=== PATIENT | female | born 1935 | race Hispanic/Latino ===

== ENCOUNTER 2018-11-18 20:21 | Inpatient (IN) | payer MEDICARE ==
[~2018-11-18] VITALS: Ht 152.4 cm; Wt 73.0 kg
[~2018-11-18 20:21] MED LIST: ADVAIR 250-501 EACH INH; ALBUTEROL SULFAT2 MG PO; ALPRAZOLAM0.5 MG PO; AMLODIPINE BESYL5 MG PO; BENZONATATE100 MG PO; DEXILANT30 MG PO; DITROPAN XL5 MG PO; DONEPEZIL HCL5 MG PO; FLONASE16 GM; FUROSEMIDE20 MG PO; GABAPENTIN100 MG PO; GABAPENTIN300 MG PO; K DUR10 MEQ PO; LEVAQUIN500 MG PO; METOCLOPRAMIDE10 MG PO; MONTELUKAST SOD10 MG PO; NAMENDA10 MG PO; NEXIUM40 MG PO; NYSTATIN15 G2 TP; PREDNISOLONE ACE5 ML; PREDNISONE10 MG PO; PREDNISONE5 MG PO; PROAIR HFA INH8.5 GM; PROAIR HFA INH8.5 GM INH; SPIRIVA18 MCG INH; THEOPHYLLINE400 MG PO; TRAMADOL-ACETAMI1 EA PO; TRAVATAN Z5 ML OP; TRAZODONE HCL50 MG PO
--- OUTSIDE RECORDS SUMMARY | 2018-11-18 20:25 | XMS REPORT ---
Author Author [facility] Address Unknown Phone Unavailable Care Team Providers Care Studio Technician Name Role Phone Rubina LAWLER Unavailable Unavailable Problems This patient has no known problems. Allergies, Adverse Reactions, Alerts This patient has no known allergies or adverse reactions. Medications This patient has no known medications. Results Test Description Test Time Test Comments Text Results Atomic Results Result Comments CHEST SINGLE (PORTABLE) [place] [address] Patient Name: LYDIA LEROY MR #: [id number] : 1935 Age/Sex: 81/F Req #: [id number] Adm Physician: Ordered by: HAILEY LAWLER MD Report #: [id number] Location: ER Room/Bed: Procedure: [id number] DX/CHEST SINGLE (PORTABLE) Exam Date: 08/22/17 Exam Time: 0115 REPORT STATUS: Signed CHEST SINGLE (PORTABLE), 08/22/2017 12:41 AM Technique: CHEST SINGLE (PORTABLE) Comparison: 05/16/2016 Clinical history: Shortness of breath Findings: Stable mild cardiomegaly. Stable appearance of the lungs and pleural spaces with persistent left basilar volume loss and scarring, minimal bibasilar atelectasis/scarring. No significant effusion or pneumothorax. Impression: Stable chest without acute abnormality Signed by: Dr Avinash Nicolas MD on 08/22/2017 1:56 AM Dictated By: AVINASH NICOLAS MD 5 Transcribed By: YOSVANY on 08/22/17155 COPY TO: HAILEY LAWLER MD
--- NOTE | 2018-11-18 21:57 | Diagnostic Imaging Report ---
CHEST SINGLE (PORTABLE), 11/18/2018 8:33 PM Technique: CHEST SINGLE (PORTABLE) Comparison: 9.24.17. Clinical history: Shortness of breath Findings: Stable mild cardiomegaly. Mild right basilar opacity, new. Stable left basilar scarring. No significant effusion or pneumothorax. Impression: Mild right basilar opacity could reflect aspiration or pneumonia. Recommend follow up upright PA and lateral. Signed by: Dr Gladis Nicolas MD on 11/18/2018 9:53 PM
[2018-11-18] MEDS ORDERED: AZITHROMYCIN 500MG/NS 250 ML 250 ML IV STA (22:12)
[2018-11-18] MEDS ORDERED: CEFTRIAXONE SOD 1 GM VIAL IV SCH (22:15)
[2018-11-18] MEDS ORDERED: ALBUTEROL/IPRATROPIUM 3 ML NEB NEB PRN (22:15)
[2018-11-18 22:19] LABS: BASOPHILS % 0.1 % (0.0-1.0); HEMOGLOBIN 10.7 g/dL (12.0-16.0); LYMPHOCYTES # (AUTO) 1.2 (1.0-3.2); LYMPHOCYTES % 7.6 % (18.0-39.1); MEAN CORPUSCULAR HEMOGLOBIN 27.5 pg (28-32); MEAN CORPUSCULAR HGB CONC 31.5 g/dL (31-35); MEAN CORPUSCULAR VOLUME 87.4 fL (81-99); MONOCYTES # (AUTO) 1.3 (0.2-0.8); NEUTROPHILS # (AUTO) 13.5 (2.1-6.9); NEUTROPHILS % 83.5 % (38.7-80.0); PLATELET COUNT 311 x10e3/uL (140-360); RED BLOOD COUNT 3.89 x10e6/uL (3.6-5.1); RED CELL DISTRIBUTION WIDTH 14.6 % (11.7-14.4)
[2018-11-18 22:31] LABS: ALANINE AMINOTRANSFERASE 20 IU/L (0-55); ALBUMIN 3.7 g/dL (3.5-5.0); ALBUMIN/GLOBULIN RATIO 1.1 (0.8-2.0); ALKALINE PHOSPHATASE 134 IU/L (40-150); ANION GAP 15.6 mmol/L (8-16); BLOOD UREA NITROGEN 5 mg/dL (7-26); BUN/CREATININE RATIO 7 (6-25); CALCIUM 9.4 mg/dL (8.4-10.2); CARBON DIOXIDE 23 mmol/L (22-29); CHLORIDE 97 mmol/L (98-107); EST GLOMERULAR FILTRATION RATE > 60 ML/MIN (60-); GLUCOSE 121 mg/dL (74-118); POTASSIUM 3.6 mmol/L (3.5-5.1); SODIUM 132 mmol/L (136-145)
[2018-11-18 22:40] LABS: CREATINE KINASE 84 IU/L (29-168)
[2018-11-18] MEDS ORDERED: CEFTRIAXONE SOD 1 GM/NS 50 ML 50 ML IV ONE (23:44)
[2018-11-18] MEDS: IPRATROPIUM BROMIDE 0.02% 2.5 ML NEB NEB SCH (23:45)
[2018-11-18] MEDS: ALBUTEROL SULF 0.083% NEB SOLN 3 ML NEB NEB SCH (23:45)
[2018-11-18 23:51] LABS: CREATINE KINASE 51 IU/L (29-168)
[2018-11-19] VITALS (9 sets, daily range): BP systolic 152–175; BP diastolic 62–91
--- NOTE | 2018-11-19 02:37 | NUR ---
Patient received via stretcher from ER. Admission history and Initial physical assessment completed. AAO x 3. Patient had no complaints of pain. No signs of respiratory distress. 2L NC in place. Patient oriented to room, call light and plan of care. Bed locked and in lowest position. Bed rails up x 2. Bed alarm activated. Patient did not have a list of her medications and stated her daughter will bring a list of her medication in the morning. Patient instructed to call for assistance when needed. Call light within reach.
--- NOTE | 2018-11-19 02:52 | NUR ---
Patient requested Oxybutynin Chloride (5mg) for her overactive bladder , medication to ease her pain when coughing and sleep medication. A message was left on Dr. Darnell's voicemail ([phone]). Awaiting call back.
[2018-11-19] MEDS: ALBUTEROL SULF 0.083% NEB SOLN 3 ML NEB NEB SCH ×3 (03:00→10:45)
[2018-11-19] MEDS: IPRATROPIUM BROMIDE 0.02% 2.5 ML NEB NEB SCH ×2 (06:25→07:47)
[2018-11-19 08:44] LABS: CREATINE KINASE 148 IU/L (29-168)
--- NOTE | 2018-11-19 11:58 | NUR ---
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 Diet Hx.: No known food allergies. Pt is eating well and denies any difficulty chewing with dentures, swallowing, no N, V, D. Pt is able to feed herself and is walking. Current Diet: ADA/cardiac Malnutrition Evaluation (11/19/2018) The patient does not meet criteria for a specified degree of malnutrition at this time. Will re-evaluate at follow-up as appropriate. Diet Education Needs Assessment: Diet education not indicated. Diet Adequacy: Meeting calorie needs, Meeting protein needs, Meeting fluid needs Tolerance: Tolerating PO Nutrition Care Level:Ortiz Maldonado RD, LD, CNSC
[2018-11-19] MEDS ORDERED: ONDANSETRON HCL INJ 2 MG/ML VIAL IV PRN (12:00)
[2018-11-19] MEDS ORDERED: ALBUTEROL/IPRATROPIUM 3 ML NEB NEB PRN (12:00)
[2018-11-19] MEDS ORDERED: ACETAMINOPHEN 325 MG TAB PO PRN (12:00)
--- NOTE | 2018-11-19 13:37 | History and Physical ---
CHIEF COMPLAINT: Cough, failed outpatient antibiotic treatment, aspiration pneumonia. HISTORY: This is an 83-year-old female who is on hospice for COPD and bronchiectasis, came in with fever and cough, difficulty breathing in light of oxygen usage at home. The patient started out with Levaquin already with hospice, but she did not get any better. She was having difficulty breathing. Chest x-ray showed right lower lobe pneumonia. The patient also has chronic aspiration as well. She is admitted for further treatment. She had a WBC of 16,000 with fever of 101. The patient is otherwise stable now. PAST MEDICAL HISTORY: Chronic asthma with recurrent exacerbation, bronchiectasis, COPD, hypertension, generalized weakness, very hard of hearing, progressive dementia, urinary urgency and incontinence. PAST SURGICAL HISTORY: Hysterectomy, cholecystectomy, abdominal hernia repair, knee surgery. SOCIAL HISTORY: Patient lives at home with her family. She does not smoke or use alcohol. She has very good family support. ALLERGIES: NO KNOWN ALLERGIES. HOME MEDICATIONS: List is extensive. Albuterol, Xanax, Norvasc, Tessalon Perles, Dexilant, Aricept, Flonase, gabapentin, Namenda, Reglan, Singulair, oxybutynin, potassium, prednisone chronically 10 mg daily, theophylline 400 mg q.24 hours, Spiriva, Ultracet, multiple eye drops. PHYSICAL EXAMINATION VITAL SIGNS: T-max is 101, blood pressure 124/53, pulse rate 88, respirations 18. GENERAL: Patient is in no acute distress. He is awake. HEENT: Normocephalic, atraumatic. Anicteric. NECK: Supple grossly. PULMONARY: Bilateral coarses and rhonchi with diminished breath sounds at the bases on the right more than the left. CARDIOVASCULAR: Tachycardia. ABDOMEN: Soft. EXTREMITIES: No cyanosis or edema. NEUROLOGIC: No gross focal deficit. LABORATORY: WBC 15.2, hemoglobin 10.7, hematocrit 34, platelets 311. Chemistries; sodium is 132, potassium 3.6, chloride 97, bicarb 23, BUN 5, creatinine 0.7, glucose 121. IMAGING: Chest x-ray showed that the patient has right basilar opacity, could be aspiration pneumonia. IMPRESSION 1. Aspiration pneumonia, most likely given the patient's history. The patient had dysphagia and dementia progressive, but also chronic obstructive pulmonary disease at baseline and asthma. 2. Pvzpf-li-mdygynl asthma exacerbation and yumdr-ok-ppmkkaf chronic obstructive pulmonary disease exacerbation. 3. Acute bronchiectasis exacerbation. 4. Progressive decline with dementia and hypertension. PLAN: Continue with Zosyn and IV antibiotic. Add on azithromycin. Stop Rocephin. Nebulizer treatment. Home medications resumed. CT of the chest without IV contrast. Oxygen support. IV steroids. Will monitor the patient closely. The patient will be admitted for the next few days for treatment. Job#: [id number] SUSIE
[2018-11-19] MEDS ORDERED: SODIUM CHLORIDE 0.9% 250ML 250 ML ONE (13:48)
[2018-11-19] MEDS: OXYBUTYNIN CHLORIDE XL 5 MG TAB PO SCH (14:00)
--- NOTE | 2018-11-19 14:01 | NUR ---
Patient off the floor for CT
[2018-11-19] MEDS: ALBUTEROL/IPRATROPIUM 3 ML NEB NEB SCH ×2 (14:10→19:03)
--- NOTE | 2018-11-19 14:33 | NUR ---
CASE MANAGEMENT INITIAL ASSESSMENT Assembler Engine to bedside to discuss plan of care with patient/family. CM/SW role and care transitions discussed. Anticipated discharge plan discussed along with duration of care. CM/SW discussed patients right to make decisions in care. CM/SW work hours given. Patient lives: IN OWN HOUSE WITH DAUGHTER SOPHIE [phone] Admit/Transfer: VIA ED FROM HOME POA/Emergency contact: SOPHIE Current/Previous Home Health: [facility] FOR 34 HOURS A WEEK PCP/Follow-up Care: YE Current/Previous DME: [facility] O2 AT NIGHT AND NEBULIZER TREATMENT AT HOME Other Services: NONE Employment Status: RETIRED Areas of Concerns: NONE Referral Needs: NONE Education Needs: NONE IMM/STANLEY given and signed (if applicable): UPON ADMISSION Goal for discharge: RETURN HOME INDEPENDENTLY CM/SW left business card at the bedside with contact information. Name and number was also written on the patients whiteboard. Patient verbalized understanding of discussion. CM will follow-up with ongoing discharge and transition of care needs.
[2018-11-19] MEDS: PIPER-TAZ 3.375 GM 50 ML IV SCH ×2 (14:58→21:30)
[2018-11-19] MEDS: AZITHROMYCIN 500MG/NS 250 ML 250 ML IV SCH (15:42)
[2018-11-19 15:57] LABS: CREATINE KINASE 173 IU/L (29-168)
[2018-11-19] MEDS: FLUTICASONE PROPIONATE NASAL SPRAY NS SCH (17:38)
[2018-11-19] MEDS: MEMANTINE 10 MG TAB PO SCH (17:38)
[2018-11-19] MEDS: GABAPENTIN 300 MG CAP PO SCH (17:38)
[2018-11-19] MEDS: THEOPHYLLINE 200 MG TABCR PO SCH (17:38)
[2018-11-19] MEDS: METOCLOPRAMIDE HCL 10 MG TAB PO SCH (17:38)
--- NOTE | 2018-11-19 19:28 | NUR ---
Patient received sitting up in bed. AAO x 3. No complaints of pain. Respirations even and non-labored. Fall precautions maintained. Patient instructed to call for assistance when needed. Call light within reach.
[2018-11-19] MEDS: MONTELUKAST SODIUM 10 MG TAB PO SCH (21:30)
[2018-11-19] MEDS: TRAZODONE HCL 50 MG TAB PO SCH (21:30)
[2018-11-19] MEDS: DONEPEZIL HCL 5 MG TAB PO SCH (21:30)
[2018-11-19] MEDS: TRAVOPROST(OPTH) 2.5 ML BTL OP SCH (21:30)
[2018-11-20] VITALS (7 sets, daily range): BP systolic 127–138; BP diastolic 48–64
[2018-11-20] MEDS: ALBUTEROL/IPRATROPIUM 3 ML NEB NEB SCH ×4 (00:39→19:27)
[2018-11-20] MEDS: ALPRAZOLAM 0.5 MG TAB PO PRN ×2 (00:50→09:12)
[2018-11-20] MEDS: TRAMADOL/APAP 37.5MG-325MG TAB PO PRN (00:50)
[2018-11-20] MEDS: PIPER-TAZ 3.375 GM 50 ML IV SCH ×4 (02:10→20:52)
[2018-11-20 05:18] LABS: BASOPHILS % 0.4 % (0.0-1.0); EOSINOPHILS # (AUTO) 0.1 (0.0-0.4); EOSINOPHILS % 0.7 % (0.0-6.0); HEMATOCRIT 29.6 % (34.2-44.1); HEMOGLOBIN 9.2 g/dL (12.0-16.0); LYMPHOCYTES # (AUTO) 1.2 (1.0-3.2); LYMPHOCYTES % 17.2 % (18.0-39.1); MEAN CORPUSCULAR HEMOGLOBIN 27.1 pg (28-32); MEAN CORPUSCULAR HGB CONC 31.1 g/dL (31-35); MEAN CORPUSCULAR VOLUME 87.1 fL (81-99); MONOCYTES # (AUTO) 0.9 (0.2-0.8); MONOCYTES % 13.4 % (4.4-11.3); NEUTROPHILS # (AUTO) 4.6 (2.1-6.9); NEUTROPHILS % 67.4 % (38.7-80.0); PLATELET COUNT 280 x10e3/uL (140-360); RED CELL DISTRIBUTION WIDTH 14.5 % (11.7-14.4)
[2018-11-20 05:47] LABS: ANION GAP 13.9 mmol/L (8-16); BLOOD UREA NITROGEN 7 mg/dL (7-26); BUN/CREATININE RATIO 11 (6-25); CALCIUM 8.8 mg/dL (8.4-10.2); CARBON DIOXIDE 25 mmol/L (22-29); CHLORIDE 100 mmol/L (98-107); CREATININE, SERUM 0.63 mg/dL (0.57-1.11); EST GLOMERULAR FILTRATION RATE > 60 ML/MIN (60-); GLUCOSE 98 mg/dL (74-118); SODIUM 136 mmol/L (136-145)
[2018-11-20 05:53] LABS: POTASSIUM 2.9 mmol/L (3.5-5.1)
--- NOTE | 2018-11-20 06:07 | NUR ---
medical laboratory technician called with critical lab value of Potassium of 2.9. Dr. Adriane Darnell notified by leaving a message on his voice-mail. Awaiting call back.
--- NOTE | 2018-11-20 07:16 | NUR ---
Shift report given to oncoming nurse. Patient in stable condition.
--- NOTE | 2018-11-20 07:59 | Diagnostic Imaging Report ---
EXAM: CT Chest WITHOUT contrast INDICATION: ^SOB ^20181119 ^1350 COMPARISON: Same day chest x-ray TECHNIQUE: Chest was scanned utilizing a multidetector helical scanner from the lung apex through the level of the adrenal glands without administration of IV contrast. Absence of intravenous contrast decreases sensitivity for detection of lymphadenopathy and vascular pathology. Coronal and sagittal reformations were obtained. Routine protocol was performed. IV CONTRAST: None COMPLICATIONS: None RADIATION DOSE: Total DLP: 503.14 mGy*cm Estimated effective dose: (DLP x 0.014 x size factor) mSv CTDIvol has been reviewed. It is below the limits set by the Radiation Protocol Committee (RPC). FINDINGS: Limited study due to motion. Patient could not hold breath. LINES/ TUBES: None. LUNGS AND AIRWAYS: Hyperinflated lungs. Anterior right upper lobe cluster of tiny nodules (series 3, image 55). There are additional scattered tiny nodules throughout the lungs. Right base consolidation. There are small additional areas of focal consolidation, such as in left lower lobe (series 3, image 62). Airways are normal. PLEURA: The pleural spaces are clear. HEART AND MEDIASTINUM: The thyroid gland is normal. No mediastinal lymphadenopathy. Scattered nonspecific mediastinal lymph nodes, measuring up to 0.9 cm in the right paratracheal region. Limited for evaluation of hilar regions without intravenous contrast. No axillary lymphadenopathy. The heart is enlarged. There is no pericardial effusion. Main pulmonary artery measures 3.2 cm, slightly enlarged. Moderate to severe calcification of aortic arch. UPPER ABDOMEN: Left diaphragmatic hernia with herniation of fat and engorged subdiaphragmatic vessels (series 2, image 100). There is also moderate size hiatal hernia. The esophagus is mildly patulous. BONES: Mild scoliosis of the thoracic spine with multilevel degenerative changes. Generalized demineralization. SOFT TISSUES: Unremarkable. IMPRESSION: 1. Limited study due to motion artifact. 2. Scattered tiny nodules as well as areas of consolidation, most notable in right base, concerning for infectious/inflammatory process. 3. Large left diaphragmatic hernia, containing fat and herniated engorged infra diaphragmatic vessels. 4. Moderate size hiatal hernia. Signed by: Dr. Duane Rayo MD on 11/20/2018 7:56 AM
[2018-11-20] MEDS ORDERED: POTASSIUM CHLORIDE 10MEQ EA PO SCH (09:00)
[2018-11-20] MEDS ORDERED: OXYBUTYNIN CHLORIDE XL 5 MG TAB PO SCH (09:00)
[2018-11-20] MEDS: FLUTICASONE PROPIONATE NASAL SPRAY NS SCH ×2 (09:11→17:17)
[2018-11-20] MEDS: OXYBUTYNIN CHLORIDE XL 5 MG TAB PO SCH (09:11)
[2018-11-20] MEDS: GABAPENTIN 300 MG CAP PO SCH ×2 (09:11→17:16)
[2018-11-20] MEDS: AMLODIPINE BESYLATE 5 MG TAB PO SCH (09:11)
[2018-11-20] MEDS: PANTOPRAZOLE SOD 40 MG TABEC PO SCH (09:11)
[2018-11-20] MEDS: MEMANTINE 10 MG TAB PO SCH ×2 (09:11→17:16)
[2018-11-20] MEDS: METOCLOPRAMIDE HCL 10 MG TAB PO SCH ×2 (09:11→17:16)
[2018-11-20] MEDS: POTASSIUM CHLORIDE 10MEQ EA PO SCH ×3 (09:11→15:45)
[2018-11-20] MEDS: THEOPHYLLINE 200 MG TABCR PO SCH ×2 (09:12→17:17)
[2018-11-20] MEDS: AZITHROMYCIN 500MG/NS 250 ML 250 ML IV SCH ×2 (12:30→13:00)
--- NOTE | 2018-11-20 19:25 | NUR ---
Patient received asleep in bed. Aroused by tactile stimuli. No signs of pain , discomfort or respiratory distress. Bed locked and in lowest position. Bed rails up x 2. Call light within reach.
[2018-11-20] MEDS: ALBUTEROL SULFATE 2 MG TAB PO SCH (19:27)
[2018-11-20] MEDS: MONTELUKAST SODIUM 10 MG TAB PO SCH (21:53)
[2018-11-20] MEDS: DONEPEZIL HCL 5 MG TAB PO SCH (21:53)
[2018-11-20] MEDS: TRAZODONE HCL 50 MG TAB PO SCH (21:53)
[2018-11-20] MEDS: TRAVOPROST(OPTH) 2.5 ML BTL OP SCH (21:53)
[2018-11-21] VITALS (9 sets, daily range): BP systolic 116–152; BP diastolic 50–69
[2018-11-21] MEDS: ALBUTEROL/IPRATROPIUM 3 ML NEB NEB SCH ×4 (01:05→19:35)
[2018-11-21] MEDS: PIPER-TAZ 3.375 GM 50 ML IV SCH ×4 (01:42→21:05)
[2018-11-21] MEDS: TRAMADOL/APAP 37.5MG-325MG TAB PO PRN (02:12)
[2018-11-21 05:29] LABS: ANION GAP 11.8 mmol/L (8-16); BLOOD UREA NITROGEN 8 mg/dL (7-26); BUN/CREATININE RATIO 12 (6-25); CALCIUM 8.8 mg/dL (8.4-10.2); CARBON DIOXIDE 24 mmol/L (22-29); CHLORIDE 104 mmol/L (98-107); CREATININE, SERUM 0.66 mg/dL (0.57-1.11); EST GLOMERULAR FILTRATION RATE > 60 ML/MIN (60-); GLUCOSE 96 mg/dL (74-118); POTASSIUM 3.8 mmol/L (3.5-5.1); SODIUM 136 mmol/L (136-145)
--- NOTE | 2018-11-21 07:18 | NUR ---
Patient resting comfortably. Shift report given to oncoming nurse.
--- NOTE | 2018-11-21 07:25 | NUR ---
PATIENT IN BED WITH HEAD OF BED ELEVATED RECEIVING NEB TREATMENT, NO RESPIRATORY DISTRESS OBSERVED. BED IN LOWER POSITION, CALL LIGHT AT REACH. INSTRUCTED TO CALL FOR ASSISTANCE NEEDED.
[2018-11-21] MEDS: PANTOPRAZOLE SOD 40 MG TABEC PO SCH (07:30)
[2018-11-21] MEDS: FLUTICASONE PROPIONATE NASAL SPRAY NS SCH ×2 (09:25→17:40)
[2018-11-21] MEDS: MEMANTINE 10 MG TAB PO SCH ×2 (09:26→17:40)
[2018-11-21] MEDS: POTASSIUM CHLORIDE 10MEQ EA PO SCH (09:26)
[2018-11-21] MEDS: OXYBUTYNIN CHLORIDE XL 5 MG TAB PO SCH (09:26)
[2018-11-21] MEDS: AMLODIPINE BESYLATE 5 MG TAB PO SCH (09:26)
[2018-11-21] MEDS: THEOPHYLLINE 200 MG TABCR PO SCH ×2 (09:26→17:40)
[2018-11-21] MEDS: GABAPENTIN 300 MG CAP PO SCH ×2 (09:26→17:40)
[2018-11-21] MEDS: METOCLOPRAMIDE HCL 10 MG TAB PO SCH ×2 (09:26→17:40)
--- NOTE | 2018-11-21 11:40 | NUR ---
PATIENT AMBULATING IN HALLWAY WITH PHYSICAL THERAPY, NO RESPIRATORY DISTRESS OBSERVED. WILL CONTINUE TO MONITOR.
[2018-11-21] MEDS: GUAIFENESIN/CODEINE 10 ML CUP PO SCH ×2 (12:56→18:37)
[2018-11-21] MEDS: AZITHROMYCIN 500MG/NS 250 ML 250 ML IV SCH (13:32)
--- NOTE | 2018-11-21 17:51 | NUR ---
PATIENT ASSISTED TO THE RESTROOM AND BACK TO CHAIR. FAMILY MEMBERS VISITING WITH PATIENT. CALL LIGHT AT REACH.
[2018-11-21] MEDS: ALBUTEROL SULFATE 2 MG TAB PO SCH (19:35)
[2018-11-21] MEDS: TRAZODONE HCL 50 MG TAB PO SCH (21:05)
[2018-11-21] MEDS: DONEPEZIL HCL 5 MG TAB PO SCH (21:05)
[2018-11-21] MEDS: MONTELUKAST SODIUM 10 MG TAB PO SCH (21:05)
[2018-11-21] MEDS: TRAVOPROST(OPTH) 2.5 ML BTL OP SCH (21:05)
[2018-11-22] MEDS: GUAIFENESIN/CODEINE 10 ML CUP PO SCH ×4 (00:32→18:00)
[2018-11-22 01:04] VITALS: BP 161/75
[2018-11-22] MEDS: ALBUTEROL/IPRATROPIUM 3 ML NEB NEB SCH ×4 (01:07→19:27)
[2018-11-22] MEDS: PIPER-TAZ 3.375 GM 50 ML IV SCH ×3 (01:11→18:00)
[2018-11-22 05:04] LABS: BASOPHILS % 0.8 % (0.0-1.0); EOSINOPHILS # (AUTO) 0.2 (0.0-0.4); EOSINOPHILS % 3.3 % (0.0-6.0); HEMATOCRIT 27.1 % (34.2-44.1); HEMOGLOBIN 8.3 g/dL (12.0-16.0); LYMPHOCYTES # (AUTO) 1.4 (1.0-3.2); LYMPHOCYTES % 27.5 % (18.0-39.1); MEAN CORPUSCULAR HEMOGLOBIN 26.9 pg (28-32); MEAN CORPUSCULAR HGB CONC 30.6 g/dL (31-35); MEAN CORPUSCULAR VOLUME 87.7 fL (81-99); MONOCYTES # (AUTO) 0.6 (0.2-0.8); MONOCYTES % 11.1 % (4.4-11.3); NEUTROPHILS % 56.3 % (38.7-80.0); PLATELET COUNT 268 x10e3/uL (140-360); RED BLOOD COUNT 3.09 x10e6/uL (3.6-5.1); RED CELL DISTRIBUTION WIDTH 14.4 % (11.7-14.4)
[2018-11-22 05:27] LABS: ANION GAP 12.5 mmol/L (8-16); BLOOD UREA NITROGEN 6 mg/dL (7-26); BUN/CREATININE RATIO 9 (6-25); CALCIUM 8.7 mg/dL (8.4-10.2); CARBON DIOXIDE 26 mmol/L (22-29); CHLORIDE 103 mmol/L (98-107); CREATININE, SERUM 0.66 mg/dL (0.57-1.11); EST GLOMERULAR FILTRATION RATE > 60 ML/MIN (60-); GLUCOSE 94 mg/dL (74-118); POTASSIUM 3.5 mmol/L (3.5-5.1); SODIUM 138 mmol/L (136-145)
[2018-11-22 06:38] VITALS: BP 149/67
[2018-11-22 07:55] VITALS: BP 160/73
--- NOTE | 2018-11-22 08:00 | NUR ---
ROUNDING DONE EARLIER. NO RESP DISTRESS NOTED.
[2018-11-22] MEDS: PANTOPRAZOLE SOD 40 MG TABEC PO SCH (08:31)
[2018-11-22] MEDS: GABAPENTIN 300 MG CAP PO SCH ×2 (08:32→17:00)
[2018-11-22] MEDS: POTASSIUM CHLORIDE 10MEQ EA PO SCH (08:32)
[2018-11-22] MEDS: OXYBUTYNIN CHLORIDE XL 5 MG TAB PO SCH (08:32)
[2018-11-22] MEDS: MEMANTINE 10 MG TAB PO SCH ×2 (08:32→17:00)
[2018-11-22] MEDS: METOCLOPRAMIDE HCL 10 MG TAB PO SCH ×2 (08:33→17:00)
[2018-11-22] MEDS: THEOPHYLLINE 200 MG TABCR PO SCH ×2 (08:33→17:00)
[2018-11-22] MEDS: AMLODIPINE BESYLATE 5 MG TAB PO SCH (08:33)
[2018-11-22] MEDS: FLUTICASONE PROPIONATE NASAL SPRAY NS SCH ×2 (09:00→17:00)
--- NOTE | 2018-11-22 10:00 | NUR ---
PT UP IN CHAIR. NO DISTRESS NOTED.
[2018-11-22 12:00] VITALS: BP 146/64
[2018-11-22] MEDS: AZITHROMYCIN 500MG/NS 250 ML 250 ML IV SCH (13:00)
[2018-11-22 15:52] VITALS: BP 140/63
--- NOTE | 2018-11-22 18:30 | NUR ---
NO CHANGES IN PT STATUS. GETTING READY TO GO TO BED; TIRED AFTER FAMILY VISITING/
[2018-11-22] MEDS: ALBUTEROL SULFATE 2 MG TAB PO SCH (19:27)
[2018-11-22 20:00] VITALS: BP 167/81
[2018-11-22] MEDS: TRAZODONE HCL 50 MG TAB PO SCH (21:36)
[2018-11-22] MEDS: TRAVOPROST(OPTH) 2.5 ML BTL OP SCH (21:36)
[2018-11-22] MEDS: MONTELUKAST SODIUM 10 MG TAB PO SCH (21:36)
[2018-11-22] MEDS: DONEPEZIL HCL 5 MG TAB PO SCH (21:36)
[2018-11-23] VITALS (9 sets, daily range): BP systolic 122–186; BP diastolic 47–75
[2018-11-23] MEDS: GUAIFENESIN/CODEINE 10 ML CUP PO SCH ×4 (00:17→17:18)
[2018-11-23] MEDS: PIPER-TAZ 3.375 GM 50 ML IV SCH ×4 (00:17→17:18)
[2018-11-23] MEDS: ALBUTEROL/IPRATROPIUM 3 ML NEB NEB SCH ×4 (01:15→20:30)
[2018-11-23] MEDS: ALBUTEROL SULFATE 2 MG TAB PO SCH (09:00)
[2018-11-23] MEDS: MEMANTINE 10 MG TAB PO SCH ×2 (09:05→17:18)
[2018-11-23] MEDS: GABAPENTIN 300 MG CAP PO SCH ×2 (09:05→17:18)
[2018-11-23] MEDS: AMLODIPINE BESYLATE 5 MG TAB PO SCH (09:05)
[2018-11-23] MEDS: THEOPHYLLINE 200 MG TABCR PO SCH ×2 (09:05→17:18)
[2018-11-23] MEDS: METOCLOPRAMIDE HCL 10 MG TAB PO SCH ×2 (09:05→17:18)
[2018-11-23] MEDS: OXYBUTYNIN CHLORIDE XL 5 MG TAB PO SCH (09:05)
[2018-11-23] MEDS: PANTOPRAZOLE SOD 40 MG TABEC PO SCH (09:05)
[2018-11-23] MEDS: POTASSIUM CHLORIDE 10MEQ EA PO SCH (09:06)
[2018-11-23] MEDS: FLUTICASONE PROPIONATE NASAL SPRAY NS SCH ×2 (09:08→17:18)
[2018-11-23 10:25] LABS: BASOPHILS % 0.3 % (0.0-1.0); EOSINOPHILS # (AUTO) 0.1 (0.0-0.4); EOSINOPHILS % 1.9 % (0.0-6.0); HEMATOCRIT 30.1 % (34.2-44.1); HEMOGLOBIN 9.3 g/dL (12.0-16.0); LYMPHOCYTES % 16.7 % (18.0-39.1); MEAN CORPUSCULAR HEMOGLOBIN 27.2 pg (28-32); MEAN CORPUSCULAR HGB CONC 30.9 g/dL (31-35); MONOCYTES # (AUTO) 0.6 (0.2-0.8); MONOCYTES % 10.3 % (4.4-11.3); NEUTROPHILS % 69.2 % (38.7-80.0); PLATELET COUNT 338 x10e3/uL (140-360); RED BLOOD COUNT 3.42 x10e6/uL (3.6-5.1); RED CELL DISTRIBUTION WIDTH 14.5 % (11.7-14.4)
[2018-11-23 10:43] LABS: ANION GAP 12.4 mmol/L (8-16); BLOOD UREA NITROGEN 6 mg/dL (7-26); BUN/CREATININE RATIO 9 (6-25); CARBON DIOXIDE 26 mmol/L (22-29); CHLORIDE 102 mmol/L (98-107); CREATININE, SERUM 0.67 mg/dL (0.57-1.11); EST GLOMERULAR FILTRATION RATE > 60 ML/MIN (60-); GLUCOSE 117 mg/dL (74-118); POTASSIUM 3.4 mmol/L (3.5-5.1); SODIUM 137 mmol/L (136-145)
[2018-11-23] MEDS: AZITHROMYCIN 500MG/NS 250 ML 250 ML IV SCH (12:39)
[2018-11-23] MEDS: TRAVOPROST(OPTH) 2.5 ML BTL OP SCH (20:46)
[2018-11-23] MEDS: TRAZODONE HCL 50 MG TAB PO SCH (20:46)
[2018-11-23] MEDS: DONEPEZIL HCL 5 MG TAB PO SCH (20:46)
[2018-11-23] MEDS: MONTELUKAST SODIUM 10 MG TAB PO SCH (20:47)
[2018-11-24] VITALS (7 sets, daily range): BP systolic 125–155; BP diastolic 57–67
[2018-11-24] MEDS: GUAIFENESIN/CODEINE 10 ML CUP PO SCH ×5 (00:17→22:55)
[2018-11-24] MEDS: PIPER-TAZ 3.375 GM 50 ML IV SCH ×5 (00:17→22:55)
[2018-11-24] MEDS: ALBUTEROL/IPRATROPIUM 3 ML NEB NEB SCH ×4 (01:30→20:00)
--- NOTE | 2018-11-24 07:15 | NUR ---
pt alert and resp even ad unlabored at this time, no distress noted, pt able to make needs known, no c/o pain or SOB, RT in room at this time, call light in reach.
[2018-11-24] MEDS: PANTOPRAZOLE SOD 40 MG TABEC PO SCH (07:30)
[2018-11-24] MEDS: OXYBUTYNIN CHLORIDE XL 5 MG TAB PO SCH (08:21)
[2018-11-24] MEDS: POTASSIUM CHLORIDE 10MEQ EA PO SCH (08:21)
[2018-11-24] MEDS: FLUTICASONE PROPIONATE NASAL SPRAY NS SCH ×2 (08:21→17:10)
[2018-11-24] MEDS: MEMANTINE 10 MG TAB PO SCH ×2 (08:23→17:10)
[2018-11-24] MEDS: THEOPHYLLINE 200 MG TABCR PO SCH ×2 (08:23→17:10)
[2018-11-24] MEDS: GABAPENTIN 300 MG CAP PO SCH ×2 (08:23→17:10)
[2018-11-24] MEDS: METOCLOPRAMIDE HCL 10 MG TAB PO SCH ×2 (08:23→17:10)
[2018-11-24] MEDS: AMLODIPINE BESYLATE 5 MG TAB PO SCH (08:25)
[2018-11-24] MEDS: ALBUTEROL SULFATE 2 MG TAB PO SCH ×3 (09:00→18:02)
[2018-11-24] MEDS: AZITHROMYCIN 500MG/NS 250 ML 250 ML IV SCH (12:15)
[2018-11-24] MEDS ORDERED: SODIUM CHLORIDE 0.9% 50ML 50 ML ONE (13:18)
--- NOTE | 2018-11-24 14:21 | NUR ---
Nutrition Screen Note RD Recommendation for Physician: -Continue GI soft diet as ordered Plan of Care: RD following, monitoring for adequacy and tolerance Nutrition reason for involvement: Follow up Primary Diagnose(s): COPD/ pneumonia Ht: 60in Wt:158.44lbs 11/19; 161lb 11/24 BMI: 30.9kg/m2 IBW: 100lbs RD Assessment: 11/24 - Chart reviewed. Labs and meds reviewed. K was repleted. Currently on IV abx and nebs. Pt reports improved appetite with ~75-100% recorded PO intake. No GI complains noted. LBM 11/24, normal per pt. Pt reports bottom denture not fitting right but refused texture modification. Pt denies any swallowing difficulty. Will continue to monitor and follow. (11/19/2018) Initial encounter with patient. Diet Hx.: No known food allergies. Pt is eating well and denies any difficulty chewing with dentures, swallowing, no N, V, D. Pt is able to feed herself and is walking. Current Diet: GI soft diet Malnutrition Evaluation (11/19/2018) The patient does not meet criteria for a specified degree of malnutrition at this time. Will re-evaluate at follow-up as appropriate. Diet Education Needs Assessment: Diet education not indicated. Diet Adequacy: Meeting calorie needs, Meeting protein needs, Meeting fluid needs Tolerance: Tolerating PO Nutrition Care Level: Low Kristen Levy, MS, RD, LD
--- NOTE | 2018-11-24 19:17 | NUR ---
report given to oncoming nurse, for continued care.
--- NOTE | 2018-11-24 19:20 | NUR ---
Received patient awake, not in distress, no complaints of pain at this time. Call light within easy reach, advised to call for assistance when needed. Will continue to monitor closely
[2018-11-24] MEDS: MONTELUKAST SODIUM 10 MG TAB PO SCH (22:42)
[2018-11-24] MEDS: TRAZODONE HCL 50 MG TAB PO SCH (22:42)
[2018-11-24] MEDS: ALPRAZOLAM 0.5 MG TAB PO PRN (22:42)
[2018-11-24] MEDS: TRAVOPROST(OPTH) 2.5 ML BTL OP SCH (22:42)
[2018-11-24] MEDS: DONEPEZIL HCL 5 MG TAB PO SCH (22:42)
[2018-11-25] VITALS: BP 156/67
[2018-11-25] MEDS: ALBUTEROL/IPRATROPIUM 3 ML NEB NEB SCH ×3 (01:00→13:00)
[2018-11-25 04:00] VITALS: BP 140/65
[2018-11-25] MEDS: PIPER-TAZ 3.375 GM 50 ML IV SCH ×2 (05:33→13:15)
[2018-11-25] MEDS: GUAIFENESIN/CODEINE 10 ML CUP PO SCH ×3 (05:33→13:15)
--- NOTE | 2018-11-25 07:12 | NUR ---
pt asleep, resp even and unlabored at this time no distress noted. pt easily awaken, pt able to make needs known, call light in reach will cont to monitor.
[2018-11-25 08:00] VITALS: BP 124/59
[2018-11-25] MEDS: PANTOPRAZOLE SOD 40 MG TABEC PO SCH (08:04)
[2018-11-25] MEDS: FLUTICASONE PROPIONATE NASAL SPRAY NS SCH (08:04)
[2018-11-25] MEDS: POTASSIUM CHLORIDE 10MEQ EA PO SCH (08:04)
[2018-11-25] MEDS: OXYBUTYNIN CHLORIDE XL 5 MG TAB PO SCH (08:04)
[2018-11-25] MEDS: GABAPENTIN 300 MG CAP PO SCH (08:05)
[2018-11-25] MEDS: METOCLOPRAMIDE HCL 10 MG TAB PO SCH (08:05)
[2018-11-25] MEDS: AMLODIPINE BESYLATE 5 MG TAB PO SCH (08:05)
[2018-11-25] MEDS: THEOPHYLLINE 200 MG TABCR PO SCH (08:05)
[2018-11-25] MEDS: ALBUTEROL SULFATE 2 MG TAB PO SCH (08:05)
[2018-11-25] MEDS: MEMANTINE 10 MG TAB PO SCH (08:05)
[2018-11-25] MEDS ORDERED: TRIAMCINOLONE ACET 40 MG/ML VIAL IM NR (11:00)
--- NOTE | 2018-11-25 11:06 | NUR ---
CM spoke to pt and her grandson Marv at bedside. Informed her that Dr. Darnell plans on discharging her today. Discussed Medicare Rights. Pt verbalized understanding. Signed copy placed in chart. Copy to pt. Pt currently on hospice service. Pt and her grandson thinks it is with [facility]. Pt would like to resume her hospice care on discharge. Choice letter signed and placed in chart. Copy to pt. CM will if pt on service with [facility].
[2018-11-25 11:38] VITALS: BP 156/91
--- NOTE | 2018-11-25 12:29 | NUR ---
Verified with Cristina Mathis with [facility] that pt is currently on service with them. Readmit order and clinical faxed to [facility] at [phone] / P [phone]. Pt will return home on hospice service today.
[2018-11-25] MEDS ORDERED: PNEUMOCOCCAL VACCINE POLYVALENT 23 MCG/0.5 ML VIAL IM NR (12:30)
[2018-11-25] MEDS ORDERED: INFLUENZA VIRUS VAC SPLIT INJ 0.5 ML SYR IM NR (12:30)
--- NOTE | 2018-11-25 13:01 | NUR ---
pt received a pneumonia inject. 0.5ml R. deltoid. and L. deltoid receive influenza injection 0.5ml pt tolerated well.
[2018-11-25] MEDS: AZITHROMYCIN 500MG/NS 250 ML 250 ML IV SCH (13:15)
--- NOTE | 2018-11-25 14:15 | NUR ---
pt discharged home with family member, pt to follow up with her pcp in 1 week, pt iv site removed at this time, pt tolerated well,
--- NOTE | 2018-11-25 15:14 | Discharge Summary ---
FINAL DIAGNOSES: 1. Aspiration pneumonia associated with chronic dysphagia. 2. Acute exacerbation of chronic obstructive pulmonary disease. 3. Moderate to severe acute exacerbation of asthma. 4. Acute exacerbation of chronic bronchiectasis. 5. Shortness of breath both at rest and on exertion. 6. Oxygen dependency. SUMMARY: This is an 83-year-old female who failed outpatient treatment with hospice care for her pulmonary problems. Patient exhausted all her treatment. She came to the hospital with fever, and CT scan showed pneumonia. The patient is treated. She was ready to go home, but there was no family member since apparently her caregiver was out of town. Patient will discharge home today. The patient's caregiver is on her way home now from out of town. The patient is otherwise stable. She may or may not resume hospice care when she goes home. That is up to the patient and family. Patient will not need further antibiotics. She already completed her course of treatment. She will get Kenalog 60 mg IM one time for now. She will resume all her home medication when she is discharged. Continue with potassium at home. The patient is stable, discharged home today. Job#: [id number] EV
== END 2018-11-25 14:15 | disposition hospice, home (50) | DRG 178 ==
LOC: ER 20:21 → ERHOLD 23:13 → MED/SURG2 11-19 01:47 → OBSVTOIN 11-19 11:59
PROVIDERS: ADMIT Internal Medicine; ATTEND Internal Medicine
DX: J69.0 Pneumonitis due to inhalation of food and vomit (principal); J44.0 Chronic obstructive pulmonary disease with (acute) lower respiratory infection; J45.901 Unspecified asthma with (acute) exacerbation; J44.1 Chronic obstructive pulmonary disease with (acute) exacerbation; I10 Essential (primary) hypertension; F03.90 Unspecified dementia, unspecified severity, without behavioral disturbance, psychotic disturbance, mood disturbance, and anxiety; H91.90 Unspecified hearing loss, unspecified ear; Z99.81 Dependence on supplemental oxygen
CPT/HCPCS: 36415; 71045; 71250; 80048; 80053; 82550; 82553; 82948; 83605; 83735; 84100; 84484; 85025; 87040; 87400; 90732; 94640; 99284; G0378; J0456; J0696; J2543; J3301; J7050